=== PATIENT | male | born 1975 | race Asian ===

== ENCOUNTER → 2017-06-19 | Outpatient (CLI) | payer OTHER ==
--- NOTE | 2017-06-19 09:17 | DIAGNOSTIC IMAGING REPORT ---
ABDOMEN COMPLETE (US) HISTORY: Pain. Nausea. UNSPECIFIED AB PAIN. COMPARISON: None. FINDINGS: Pancreas: The pancreas demonstrates a normal echotexture. Liver: Mild fatty infiltration Gallbladder: No gallbladder wall thickening. No gallstones. CBD: 4 mm Kidneys: Several small renal cysts bilaterally measuring up to 1.4 cm. No evidence for hydronephrosis. Spleen: Normal in size. Aorta: Normal in caliber. IVC: Patent. IMPRESSION: Several small renal cysts bilaterally. Mild fatty infiltration of liver. Otherwise negative study. The above report was generated using voice recognition software. It may contain grammatical, syntax or spelling errors. Electronically signed by: Fox Cohen M.D. 06/19/2017 9:16 AM Dictated Date/Time: 06/19/2017 9:15 AM
== END | disposition home or self-care (01) ==
LOC: C.ULTR 08:38
PROVIDERS: ATTEND Family Medicine
DX: R10.9 Unspecified abdominal pain (principal)